=== PATIENT | female | born 1975 | race African-American/Black ===

== ENCOUNTER 2022-08-11 07:17 | Emergency (ER) | payer BC, OTHER ==
[~2022-08-11] VITALS: Ht 177.8 cm; Wt 86.1 kg
[2022-08-11] MEDS ORDERED: NS IV 1000 ML 1,000 ML IV STA (07:47)
--- NOTE | 2022-08-11 07:47 | ED Headache ---
General Chief Complaint: Head/Cervical Problems Stated Complaint: MIGRAINE Nursing Triage Note: PT AMB TO [facility] 5 WITH CC OF WHITE THAT STARTED THIS AM AND N/V X2. PT STATES THAT SHE HAS HX OF MIGRAINES. Source: patient Exam Limitations: no limitations History of Present Illness Date Seen by Provider: Aug 11, 2022 Time Seen by Provider: 07:20 Initial Comments 46-year-old female with past medical history most notable for lupus, RA, MDDS coming in due to headache. She gets headaches chronically several times a week. She took her home abortive medication which did not help. This 1 started earlier this morning. She has had 2 episodes of nonbloody nonbilious vomiting which is normal for her. She states this feels like a typical headache on the right side front of her head. It is moderate to severe, constant. Denies any fever, neck stiffness, new weakness or numbness, new vision changes, or any other concerns. She has had advanced imaging including MRIs of her brain. Allergies and Home Medications Allergies Coded Allergies: shellfish derived (Verified Allergy, Unknown, 08/11/22) Patient Home Medication List Home Medication List Reviewed: Yes Review of Systems Review of Systems Constitutional: No fever Eyes: No Symptoms Reported Ears, Nose, Mouth, Throat: no symptoms reported Respiratory: no symptoms reported Cardiovascular: no symptoms reported Gastrointestinal: see HPI Genitourinary: no symptoms reported Musculoskeletal: no symptoms reported Skin: no symptoms reported Psychiatric/Neurological: See HPI Past Ykapweq-Bdwfrq-Fodndy Hx Patient Social History Tobacco Use?: No Substance use?: No Alcohol Use?: No Physical Exam Vital Signs Vital Signs - First Documented 08/11/22 07:24 Temp 35.5 Pulse 72 B/P (MAP) 176/114 (134) Pulse Ox 99 O2 Delivery Room Air Capillary Refill : Height, Weight, BMI Height: '" Weight: lbs. oz. kg; 27.00 BMI Method: General Appearance: WD/WN, no apparent distress HEENT: PERRL/EOMI, normal ENT inspection, pharynx normal Neck: non-tender, full range of motion, supple, normal inspection, other (No meningismus) Cardiovascular: regular rate, rhythm, no edema, no murmur Respiratory: chest non-tender, lungs clear, normal breath sounds, no respiratory distress, no accessory muscle use Gastrointestinal: normal bowel sounds, non tender, soft; No distended, No guarding, No rebound Back: normal inspection, no CVA tenderness Extremities: normal range of motion, non-tender, normal inspection, no pedal edema, no calf tenderness, normal capillary refill Psychiatric: alert, oriented x 3 Crainal Nerves: normal hearing, normal speech, PERRL Coordination/Gait: normal finger to nose, normal gait Motor/Sensory: no motor deficit, no sensory deficit, no pronator drift Skin: normal color, warm/dry Progress/Results/Core Measures Results/Orders My Orders Orders - VINITA HU MD Prochlorperazine Injection (Compazine In (08/11/22 08:00) Diphenhydramine Injection (Benadryl Inje (08/11/22 08:00) Ibuprofen Tablet (Motrin Tablet) (08/11/22 08:00) Ns Iv 1000 Ml (Sodium Chloride 0.9%) (08/11/22 07:47) Medications Given in ED Current Medications Medications Dose Ordered Sig/Erika Route Start Time Stop Time Status Last Admin Dose Admin Diphenhydramine HCl 25 mg ONCE ONCE IVP 08/11/22 08:00 08/11/22 08:01 DC 08/11/22 08:46 25 MG Ibuprofen 600 mg ONCE ONCE PO 08/11/22 08:00 08/11/22 08:01 DC 08/11/22 08:46 600 MG Prochlorperazine Edisylate 10 mg ONCE ONCE IV 08/11/22 08:00 08/11/22 08:01 DC 08/11/22 08:46 10 MG Vital Signs/I&O 08/11/22 08/11/22 07:24 09:45 Temp 35.5 Pulse 72 B/P (MAP) 176/114 (134) 127/72 Pulse Ox 99 O2 Delivery Room Air Blood Pressure Mean: 134 Progress Progress Note : Progress Note 46-year-old female with above history coming in due to headache. ABCs were intact and vitals were stable on presentation. She is not showing any meningismus, no fever, no clinical signs of meningitis. The headache is consistent with her previous ones, she had previous neuroimaging, and I do not believe CT head is warranted at this time. Her neuro exam is also intact at this time. She was given IV fluids, Compazine, Benadryl, and oral ibuprofen with near complete resolution of her symptoms. I believe she is stable for discharge with outpatient follow-up. She was sent home with strict return precautions Departure Impression Primary Impression: Migraine Qualified Codes: G43.009 - Migraine without aura, not intractable, without status migrainosus Disposition: HOME, SELF-CARE Condition: Improved Departure-Patient Inst. Decision time for Depature: 09:29 Referrals: [facility] (PCP/Family) Primary Care Physician Patient Instructions: Migraines in Adults Add. Discharge Instructions: If your headaches are consistent, it may be good to have follow-up with a neurologist as there are other medicines that can try to put you on. Please follow back up with your regular doctor. If symptoms worsen or you have any other concerns, of course she can come back to the ER Work/School Note: Work Release Form Date Seen in the Emergency Department: Aug 11, 2022 Return to Work: Aug 13, 2022 Restrictions: No Restrictions VINITA HU MD Aug 11, 2022 07:46
[2022-08-11] MEDS ORDERED: PROCHLORPERAZINE 10 MG/2ML INJ (COMPAZINE) IV ONE (08:00)
[2022-08-11] MEDS ORDERED: diphenhydrAMINE 50 MG/ML INJ (BENADRYL) IVP ONE (08:00)
[2022-08-11] MEDS ORDERED: IBUPROFEN 600 MG (MOTRIN) TAB PO ONE (08:00)
[2022-08-11 09:45] VITALS: BP 127/72
== END 2022-08-11 09:45 | disposition home or self-care (01) ==
LOC: EDUNIT# 07:17 → ER 07:20
DX: G43.909 Migraine, unspecified, not intractable, without status migrainosus (principal)
CPT/HCPCS: 96361; 96374; 96375